=== PATIENT | female | born 1945 | race Caucasian/White ===

== ENCOUNTER 2020-07-06 07:58 | Outpatient (RCR) | payer MEDICARE, SELFPAY ==
--- NOTE | 2020-07-06 09:23 | PTOPEVAL ---
Thank you for referring Carlene Sandovla to [facility].? The patient is scheduled to be seen for therapy? ____x/week for ___ weeks. Please review, sign, date and return this plan of care SALVADOR. I agree with and certify that the following plan of care is medically necessary. Referring Physician Date Admitting Provider: Attending Provider: LATRELL STOVER Referring Provider: *PT Outpatient Evaluation Start: 07/06/20 08:00 Freq: Status: Active Protocol: Document 07/06/20 08:00 ACR (Rec: 07/06/20 09:22 [id number]) Therapy Assessment Status Assessment Status Assessment Status Evaluation Outpatient Past Medical History Reproductive History Hx Post Menopausal Yes Evaluation Information Problem Diagnosis L knee pain Onset 05/26/20 Subjective Information Patient states that she has Query Text:As Reported By Patient/ been painting her house and Family putting trim down where she was on her hands and knees. The day after it was bothering her and the day after was worse. Patient states that walking, stairs, kneeling, standing are the most difficult. If she sits for too long and then stands it is painful. Patient states the pain is worst in the evening. Patient states that she takes ibprofen or tylenol if she is in excrutiating pain. Patient states that her goal for therapy is to have no pain and be able to garden. 13.75% disability on LEFS Prior Level of Function Activity Level (Last 3 Months) Occupation retired Hand Dominance Right Activity of Daily Living Ability Independent Indoor/Home Mobility Independent Community Mobility Independent Stairs Ability Independent Functional Cognition (Planning, Shopping Independent , Taking Medications) Cooking Yes Cleaning Yes Laundry Yes Shopping Yes Driving Yes Pain Assessment Timing of Pain Assessment Timing of Pain Assessment Assessment Pain Scale Pain Scale Used Numeric (1 - 10) Self Report Pain Assessment Left Knee(s) Reported Pain Level 3 Pain Description Aching,Dull
--- NOTE | 2020-07-30 09:52 | PTOPEVAL ---
Thank you for referring Carlene Sandoval to [facility].? The patient is scheduled to be seen for therapy? ____x/week for ___ weeks. Please review, sign, date and return this plan of care SALVADOR. I agree with and certify that the following plan of care is medically necessary. Referring Physician Date Admitting Provider: Attending Provider: CHRISSY MARTINEZ Referring Provider: *PT Outpatient Evaluation Start: 07/06/20 08:00 Freq: Status: Active Protocol: Document 07/30/20 09:12 ACR (Rec: 07/30/20 09:51 [id number]) Therapy Assessment Status Assessment Status Assessment Status Progress Outpatient Past Medical History Reproductive History Hx Post Menopausal Yes Evaluation Information Problem Diagnosis L knee pain Onset 05/26/20 Subjective Information Patient states that she has Query Text:As Reported By Patient/ been good, but continues to Family feel pretty weak, especially with steps. She states that her walking has gotten better, but she has some pain in the back of her knee that is pressure like. She states that she is able to stand for an hour when it really starts to bother her. She states she no longer has excrutiating pain, but has a aching pain in the knee and around the IT band depending on what she does. Pain Assessment Timing of Pain Assessment Timing of Pain Assessment Assessment Pain Scale Pain Scale Used Numeric (1 - 10) Self Report Pain Assessment Left Knee(s) Reported Pain Level 1 Greatest Pain Intensity 5 Pain Score Pain Score 1: Self Report Interventions Used Interventions Used By Clinicians Activity or ADL's,Exercise Lower Extremity Muscle Strength Testing Hip Strength Right Hip Flexion Strength 4+ Good + Hip Abduction Strength 4+ Good + Left Hip Flexion Strength 4 Good Hip Abduction Strength 4+ Good + Knee Strength Right Knee Flexion Strength 5 Normal Knee Extension Strength 5 Normal Left Knee Flexion Strength 4+ Good + Knee Extension Strength 4+ Good + General Exercise General Exercises Exercise Description - reeval x 5 minutes Query Text:Record Sets, Reps, - PROM HS/piriformis Resistance, and Position stretching and knee flex x 5 min B -heel/toe raises x 30
== END 2020-08-20 11:00 | disposition home or self-care (01) ==
LOC: CHSPT 07:58
DX: M25.562 Pain in left knee (principal); G89.29 Other chronic pain
CPT/HCPCS: 97014; 97110; 97161; 97530; G0283

== ENCOUNTER 2023-07-27 13:33 | Outpatient (CLI) | payer MEDICARE, SELFPAY ==
--- NOTE | ~2023-07-27 | MM_ITS ---
EXAMINATION: MM screening [facility] w april HISTORY: Screening TECHNIQUE: Craniocaudal and mediolateral oblique 3-D tomosynthesis images were obtained and synthetic 2-D images were generated. CAD analysis was submitted and interpreted. COMPARISON: No prior mammogram is available for comparison at this institution. BREAST PARENCHYMAL COMPOSITION: Not dense: There are scattered areas of fibroglandular density. FINDINGS: There is no evidence of suspicious mass, calcification, or architectural distortion to sugg est malignancy in either breast. There has been no suspicious interval change. IMPRESSION: 1. No mammographic evidence of malignancy. 2. Recommend routine screening mammography in one year. BI-RADS Category 1: Negative Reviewed, dictated and finalized at location A.
== END 2023-07-27 13:34 ==
LOC: MICIMG 13:33
PROVIDERS: PCP Family Medicine Sports Medicine; Visit Provider Family Medicine Sports Medicine
DX: Z12.31 Encounter for screening mammogram for malignant neoplasm of breast (principal)
CPT/HCPCS: 77063; 77067

== ENCOUNTER 2024-12-12 14:07 | Outpatient (CLI) | payer MEDICARE, SELFPAY ==
--- NOTE | ~2024-12-12 | MM_ITS ---
EXAMINATION: MM screening [facility] BI w april INDICATION: Asymptomatic, referred for screening mammogram. History of Right partial mastectomy 2000. COMPARISON: None available TECHNIQUE: Digital Breast Tomosynthesis CC, MLO views were obtained of Both breasts with computer-aided detection to assist in interpretation of the study. FINDINGS: The breasts are heterogeneously dense, which may obscure small masses. Posttreatment changes in Right breast are stable. No new focal dominant mass, architectural distortion, or suspicious microcalcifications are identified. There are no features to suggest malignancy. IMPRESSION: Stable benign mammogram. No evidence of malignancy in the breast. Recommend annual screening mammography in 12 months. BI-RADS 2, BENIGN Reviewed, dictated and finalized at location B.
== END 2024-12-12 14:08 | disposition home or self-care (01) ==
PROVIDERS: PCP Family Medicine Sports Medicine; Visit Provider Nurse Practitioner Family
DX: Z12.31 Encounter for screening mammogram for malignant neoplasm of breast (principal)
CPT/HCPCS: 77063; 77067